=== PATIENT | female | born 1995 | race Two or more races ===

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

== ENCOUNTER 2017-04-08 13:26 | Emergency (ER) | payer MEDICAID ==
[2017-04-08] MEDS ORDERED: DIPHENHYDRAMINE HCL 25 MG CAPSULE PO ONE (14:21)
[2017-04-08] MEDS ORDERED: ACETAMINOPHEN 325 MG TABLET PO ONE (14:21)
[2017-04-08] MEDS ORDERED: ONDANSETRON 4 MG TAB.RAPDIS PO ONE (14:21)
--- NOTE | 2017-04-08 14:22 | ER Document Report ---
ED Head/Face/Scalp Injury - General Chief Complaint: Head Injury Stated Complaint: HEAD INJURY Time Seen by Provider: 04/08/17 14:05 Notes: Patient is a 21-year-old female presents emergency department complaining of headache, nausea and vomiting after head injury yesterday. Patient states that she was skateboarding when she fell and hit the back of her head. She denies any loss of consciousness. She admits to headache and nausea vomiting last evening. Admits to 2 episodes of emesis today. Otherwise she denies any changes in vision, confusion, altered mental status. TRAVEL OUTSIDE OF THE [place] IN LAST 30 DAYS: No - Related Data Allergies/Adverse Reactions: No Known Allergies Allergy (Verified 09/30/16 15:35) Past Medical History - Social History Smoking Status: Unknown if Ever Smoked Family History: Reviewed & Not Pertinent Patient has suicidal ideation: No Patient has homicidal ideation: No Pulmonary Medical History: Denies: Hx Asthma Renal/ Medical History: Denies: Hx Peritoneal Dialysis Psychiatric Medical History: Reports: Hx Anxiety, Hx Attention Deficit Hyperactivity Disorder, Hx Depression, Hx Post Traumatic Stress Disorder - Immunizations Immunizations up to date: Yes Hx Diphtheria, Pertussis, Tetanus Vaccination: Yes Review of Systems - Review of Systems Constitutional: No symptoms reported Musculoskeletal: See HPI Neurological/Psychological: See HPI -: Yes All other systems reviewed and negative Physical Exam - Vital signs Vitals: Temp Pulse Resp BP Pulse Ox 98.4 F 64 18 118/70 100 04/08/17 13:40 04/08/17 13:40 04/08/17 13:40 04/08/17 13:40 04/08/17 13:40 - Notes Notes: PHYSICAL EXAMINATION: GENERAL: Well-appearing, well-nourished and in no acute distress. GCS 15 HEAD: Atraumatic, normocephalic. EYES: Pupils equal round and reactive to light, extraocular movements intact, sclera anicteric, conjunctiva are normal. ENT: Nares patent, oropharynx clear without exudates. Moist mucous membranes. No hemanotympanum . No blood in nares. No dental fracture NECK: Normal range of motion, supple without lymphadenopathy. Trachea midline LUNGS: Breath sounds clear to auscultation bilaterally and equal. No wheezes rales or rhonchi. HEART: Regular rate and rhythm without murmurs. Pulses intact all throughout. ABDOMEN: Soft, nontender, nondistended abdomen. No guarding, no rebound. No masses appreciated. Musculoskeletal: Normal range of motion, no pitting or edema. No cyanosis. Hip non tender, stable. NEUROLOGICAL: Cranial nerves grossly intact. Normal speech, normal gait. Normal sensory, motor, and reflex exams. PSYCH: Normal mood, normal affect. SKIN: Warm, No active bleeding Course - Re-evaluation Re-evalutation: 04/08/17 20:43 Patient does not have any focal neurologic deficits, nuchal rigidity, vital signs are within normal limits no papilledema. Patient is otherwise no acute distress and hemodynamically stable. Low index for suspicion of acute subarachnoid hemorrhage, meningitis or mass. No evidence of hemorrhage, fracture noted on CT of the head. Low suspicion for acute life-threatening etiology with intact neuro exam therefore no additional imaging or laboratory testing is indicated. Will discharge patient home with strict follow-up with PCP within the next week. - Vital Signs Vital signs: Temp Pulse Resp BP Pulse Ox 97.7 F 68 18 102/68 100 04/08/17 15:50 04/08/17 15:50 04/08/17 13:40 04/08/17 15:50 04/08/17 15:50 - Diagnostic Test Radiology reviewed: Image reviewed, Reports reviewed Discharge - Discharge Clinical Impression: CHI (closed head injury) Qualifiers: Encounter type: initial encounter Qualified Code(s): S09.90XA - Unspecified injury of head, initial encounter Condition: Good Disposition: HOME, SELF-CARE Instructions: Head Injury Precautions ([facility]), Post-Concussion Syndrome ([facility]) Referrals: VERN PORTILLO MD [Primary Care Provider] - Follow up as needed
--- NOTE | 2017-04-08 15:09 | RADIOLOGY REPORT (SQ) ---
EXAM DESCRIPTION: CT HEAD WITHOUT COMPLETED DATE/TIME: 04/08/2017 2:35 pm REASON FOR STUDY: hit her head, N/V headache COMPARISON: None. TECHNIQUE: Axial images acquired through the brain without intravenous contrast. Images reviewed wi th bone, brain and subdural windows. Images stored on PACS. All CT scanners at this facility use dose modulation, iterative reconstruction, and/or weight based d osing when appropriate to reduce radiation dose to as low as reasonably achievable (ALARA). [facility]: Dose Right [facility]: CareDose [facility]: Dose Right [facility]: Teradose 4D [facility]: Incoming Media RADIATION DOSE: Up-to-date CT equipment and radiation dose reduction techniques were employed. CTDIv ol: 49.0 mGy. DLP: 881 mGy-cm. mGy. LIMITATIONS: None. FINDINGS: VENTRICLES: Normal size and contour. CEREBRUM: No masses. No hemorrhage. No midline shift. No evidence for acute infarction. Normal gra y/white matter differentiation. No areas of low density in the white matter. CEREBELLUM: No masses. No hemorrhage. No alteration of density. No evidence for acute infarction. EXTRAAXIAL SPACES: No fluid collections. No masses. ORBITS AND GLOBE: No intra- or extraconal masses. Normal contour of globe without masses. CALVARIUM: No fracture. PARANASAL SINUSES: No fluid or mucosal thickening. SOFT TISSUES: No mass or hematoma. OTHER: No other significant finding. IMPRESSION: NORMAL BRAIN CT WITHOUT CONTRAST. EVIDENCE OF ACUTE STROKE: NO. COMMENT: Quality ID # [id number]: Final reports with documentation of one or more dose reduction techniques (e.g., Automated exposure control, adjustment of the mA and/or kV according to patient size, use of iterative reconstruction technique) TECHNICAL DOCUMENTATION: JOB ID: [id number] [employer]- All Rights Reserved
[2017-04-08 15:54] VITALS: BP 102/68
== END 2017-04-08 15:54 | disposition home or self-care (01) ==
LOC: ER 13:26
DX: S09.90XA Unspecified injury of head, initial encounter (principal); R51 Headache; R11.2 Nausea with vomiting, unspecified; R41.82 Altered mental status, unspecified; X58.XXXA Exposure to other specified factors, initial encounter
CPT/HCPCS: 99283; 70450; J3490 ×2; S0119

== ENCOUNTER 2018-10-26 14:10 | Emergency (ER) | payer MEDICAID ==
--- NOTE | 2018-10-26 14:39 | ER Document Report ---
ED Medical Screen (RME) - General Chief Complaint: Abdominal Pain Stated Complaint: ABDOMINAL PAIN Time Seen by Provider: 10/26/18 14:27 Primary Care Provider: VERN PORTILLO MD [Primary Care Provider] - Follow up as needed Mode of Arrival: Ambulatory Information source: Patient Notes: Patient is a 23-year-old female who presents to the emergency department with sharp pain in her right lower quadrant that started yesterday. Patient reports associated nausea and weakness. Denies any vomiting. Reports a few episodes of diarrhea both yesterday and today. She reports that she took 1 of her friend's Percocets to help with the pain. Denies any dysuria or vaginal discharge. Patient reports pain is worse with movement. Exam: Patient alert, oriented, smiling and interactive, no acute distress noted. Mild tenderness to palpation to right lower quadrant without guarding or rebound tenderness. I have greeted and performed a rapid initial assessment of this patient. A comprehensive ED assessment and evaluation of the patient, analysis of test results and completion of the medical decision making process will be conducted by additional ED providers. Dictation of this chart was performed using voice recognition software; therefore, there may be some unintended grammatical errors. TRAVEL OUTSIDE OF THE [place] IN LAST 30 DAYS: No - Related Data Allergies/Adverse Reactions: methylphenidate [From Concerta] Allergy (Verified 10/26/18 14:12) Past Medical History - Social History Chew tobacco use (# tins/day): No Frequency of alcohol use: None Drug Abuse: None Pulmonary Medical History: Denies: Hx Asthma Renal/ Medical History: Denies: Hx Peritoneal Dialysis Psychiatric Medical History: Reports: Hx Anxiety, Hx Attention Deficit Hyperactivity Disorder, Hx Depression, Hx Post Traumatic Stress Disorder - Immunizations Immunizations up to date: Yes Hx Diphtheria, Pertussis, Tetanus Vaccination: Yes Physical Exam - Vital signs Vitals: Temp Pulse Resp BP Pulse Ox 98.2 F 71 18 114/63 99 10/26/18 14:16 10/26/18 14:16 10/26/18 14:16 10/26/18 14:16 10/26/18 14:16 Course - Vital Signs Vital signs: Temp Pulse Resp BP Pulse Ox 98.2 F 71 18 114/63 99 10/26/18 14:16 10/26/18 14:16 10/26/18 14:16 10/26/18 14:16 10/26/18 14:16 Doctor's Discharge - Discharge Referrals: VERN PORTILLO MD [Primary Care Provider] - Follow up as needed
[2018-10-26 15:33] LABS: ABSOLUTE BASOPHILS # (AUTO) 0.1 10^3/uL (0.0-0.2); ABSOLUTE EOSINOPHILS # (AUTO) 0.1 10^3/uL (0.0-0.6); ABSOLUTE LYMPHOCYTES (AUTO) 2.6 10^3/uL (0.5-4.7); ABSOLUTE MONOCYTES (AUTO) 0.5 10^3/uL (0.1-1.4); ABSOLUTE NEUT (AUTO) 3.6 10^3/uL (1.7-8.2); BASOPHILS % (AUTO) 1.2 % (0-2); EOSINOPHILS % (AUTO) 1.1 % (0-6); HEMATOCRIT 40.1 % (36.0-47.0); HEMOGLOBIN 13.9 g/dL (12.0-15.5); LYMPHOCYTES % (AUTO) 37.5 % (13-45); MEAN CORPUSCULAR HEMOGLOBIN 29.2 pg (27.0-33.4); MEAN CORPUSCULAR HGB CONC 34.8 g/dL (32.0-36.0); MEAN CORPUSCULAR VOLUME 84 fl (80-97); MONOCYTES % (AUTO) 7.1 % (3-13); PLATELET COUNT 204 10^3/uL (150-450); RED BLOOD COUNT 4.76 10^6/uL (3.72-5.28); RED CELL DISTRIBUTION WIDTH 12.8 % (11.5-14.0); SEGMENTED NEUTROPHILS % (AUTO) 53.1 % (42-78); TOTAL CELLS COUNTED % (AUTO) 100 %; WHITE BLOOD COUNT 6.8 10^3/uL (4.0-10.5)
[2018-10-26 15:37] LABS: AMORPHOUS SEDIMENT,URINE TRACE /HPF; APPEARANCE,URINE TURBID; BILIRUBIN,URINE NEGATIVE (NEGATIVE); COLOR,URINE YELLOW; GLUCOSE, URINE NEGATIVE (NEGATIVE); KETONES,URINE NEGATIVE (NEGATIVE); LEUKOCYTE ESTERASE,URINE TRACE (NEGATIVE); NITRITE,URINE NEGATIVE (NEGATIVE); PROTEIN,URINE NEGATIVE (NEGATIVE); URINE SPECIFIC GRAVITY 1.021; UROBILINOGEN,URINE NEGATIVE mg/dL (<2.0)
[2018-10-26 15:47] LABS: ALANINE AMINOTRANSFERASE 33 U/L (9-52); ALBUMIN 4.8 g/dL (3.5-5.0); ALKALINE PHOSPHATASE 52 U/L (38-126); ANION GAP 10 (5-19); ASPARTATE AMINO TRANSFERASE 28 U/L (14-36); BILIRUBIN,DIRECT 0.2 mg/dL (0.0-0.4); BILIRUBIN,TOTAL 0.5 mg/dL (0.2-1.3); BLOOD UREA NITROGEN 11 mg/dL (7-20); CALCIUM 10.1 mg/dL (8.4-10.2); CARBON DIOXIDE 29 mmol/L (22-30); CHLORIDE 103 mmol/L (98-107); GLUCOSE 79 mg/dL (75-110); LIPASE 49.3 U/L (23-300); POTASSIUM 3.8 mmol/L (3.6-5.0); SODIUM 142.3 mmol/L (137-145); TOTAL PROTEIN 7.9 g/dL (6.3-8.2)
--- NOTE | 2018-10-26 15:57 | ER Document Report ---
ED GI/ - General Chief Complaint: Abdominal Pain Stated Complaint: ABDOMINAL PAIN Time Seen by Provider: 10/26/18 14:27 Primary Care Provider: VERN PORTILLO MD [ACTIVE STAFF] - Follow up as needed Mode of Arrival: Ambulatory TRAVEL OUTSIDE OF THE [place] IN LAST 30 DAYS: No - HPI Patient complains to provider of: Abdominal pain Notes: 10/26/18 15:55 The patient is here with complaints of lower abdominal pain. States the pain started yesterday and was located in her right lower quadrant. The pain seems to be intermittent, pressure and sharp in nature. Nothing seems to make it better or worse. She states now the pain is going across her entire lower abdomen. She has had nausea, but denies any vomiting. She does complain of some mild diarrhea. No blood in her stool. She denies fever. She denies dysuria or hematuria. She denies vaginal bleeding or vaginal discharge. She states that she is sexually active but with females only. Last normal menstrual period was at the beginning of this month. No rash. No numbness, tingling, weakness. No other specific complaints at this time. - Related Data Allergies/Adverse Reactions: methylphenidate [From Concerta] Allergy (Verified 10/26/18 14:12) Past Medical History - General Information source: Patient - Social History Smoking Status: Current Every Day Smoker Chew tobacco use (# tins/day): No Frequency of alcohol use: None Drug Abuse: None Family History: Reviewed & Not Pertinent Patient has suicidal ideation: No Patient has homicidal ideation: No Pulmonary Medical History: Denies: Hx Asthma Renal/ Medical History: Denies: Hx Peritoneal Dialysis Psychiatric Medical History: Reports: Hx Anxiety, Hx Attention Deficit Hyperactivity Disorder, Hx Depression, Hx Post Traumatic Stress Disorder - Immunizations Immunizations up to date: Yes Hx Diphtheria, Pertussis, Tetanus Vaccination: Yes Review of Systems - Review of Systems -: Yes All other systems reviewed and negative Physical Exam - Vital signs Vitals: Temp Pulse Resp BP Pulse Ox 98.2 F 71 18 114/63 99 10/26/18 14:16 10/26/18 14:16 10/26/18 14:16 10/26/18 14:16 10/26/18 14:16 - Notes Notes: GENERAL: alert, cooperative, nontoxic, no distress. HEAD: normocephalic, atraumatic EYES: conjunctiva pink without discharge, no external redness or swelling. EARS: no external swelling, no external redness NOSE: atraumatic, no external swelling MOUTH/THROAT: mucous membranes moist and pink, posterior pharynx without erythema, swelling, exudate. No trismus or drooling. NECK: soft, supple, full range of motion, no meningismus. CHEST: no distress, lungs clear and equal throughout. No wheezing, rales, rhonchi. CARDIAC: regular rate and rhythm, no murmur, normal capillary refill, normal pulses. No peripheral edema noted. ABDOMEN: Soft, tenderness across the entire lower abdomen, right, mid, left. No rebound tenderness or guarding. No obvious mass. BACK: full range of motion, no CVA tenderness. EXTREMITIES: full range of motion of all extremities. No redness, no swelling. NEURO: alert and oriented x 3, no focal deficits, full range of motion of all extremities. PYSCH: appropriate mood, affect. Patient is cooperative. SKIN: pink, warm, dry, no rash. Course - Re-evaluation Re-evalutation: 10/26/18 16:32 Patient nontoxic-appearing with stable vitals. Patient is here with complaints of some lower abdominal pain. Started yesterday. This been intermittent, sharp, crampy in nature started on the right lower quadrant and is now across her whole entire lower abdomen. No vaginal symptoms. She has had nausea, but no vomiting. No fever. No prior abdominal surgeries. Abdominal exam shows some mild tenderness across the higher lower abdomen. No rebound tenderness or guarding. No mass. Urinalysis shows no signs of infection, urine is negative. Labs are normal with a normal white blood cell count. Ultrasound of the pelvis shows bilateral hemorrhagic cysts of the ovaries which would make sense with the patient's pain and tenderness. Have a very low suspicion for acute appendicitis with lack of fever, normal white count and the fact that she has pain across her entire lower abdomen. This point the patient will be discharged home with a prescription for Naprosyn. Referral to [facility]. Follow- up with OB at the next available appointment. Follow-up sooner or return the emergency department for worsening pain, fever, persistent vomiting, or for any further concerns. The patient's emergency department workup and current diagnosis were explained to the patient and or family. Follow-up instructions were provided. Medications if prescribed were discussed. Instructions for when to return to the emergency department including specific worrisome symptoms were discussed with the patient and/or family. - Vital Signs Vital signs: Temp Pulse Resp BP Pulse Ox 98.2 F 71 18 114/63 99 10/26/18 14:16 10/26/18 14:16 10/26/18 14:16 10/26/18 14:16 10/26/18 14:16 - Laboratory Result Diagrams: 10/26/18 15:17 10/26/18 15:17 Laboratory results interpreted by me: 10/26/18 15:17 Ur Leukocyte Esterase TRACE H - Diagnostic Test Radiology reviewed: Image reviewed, Reports reviewed - Ultrasound of the pelvis shows bilateral hemorrhagic cysts, no torsion. Discharge - Discharge Clinical Impression: Ovarian cyst Qualifiers: Laterality: bilateral Qualified Code(s): N83.201 - Unspecified ovarian cyst, right side; N83.202 - Unspecified ovarian cyst, left side Condition: Stable Disposition: HOME, SELF-CARE Instructions: Ovarian Cyst ([facility]) Additional Instructions: Take medication as prescribed. Drink plenty fluids. Follow-up with [facility] at the next available appointment. Follow-up sooner for worsening pain, fever, or for any further concerns. Prescriptions: Naproxen [Naprosyn] 500 mg PO BID #20 tablet Referrals: VERN PORTILLO MD [ACTIVE STAFF] - Follow up as needed
--- NOTE | 2018-10-26 15:58 | RADIOLOGY REPORT (SQ) ---
EXAM DESCRIPTION: U/S NON OB PEL TV W/DOPPLER COMPLETED DATE/TIME: 10/26/2018 3:45 pm REASON FOR STUDY: RLQ PAIN COMPARISON: None. TECHNIQUE: Dynamic and static grayscale images acquired of the pelvis via transvaginal approach and recorded on PACS. Additional selected color Doppler and spectral images recorded. LIMITATIONS: None. FINDINGS: UTERUS: Contour normal. No mass. ENDOMETRIAL STRIPE: No focal or generalized thickening. No masses. CERVIX: No nabothian cysts. RIGHT OVARY AND DOPPLER: Hypoechoic 1.8 cm probable complicated hemorrhagic cyst. Normal Doppler det ectable blood flow. LEFT OVARY AND DOPPLER: Hypoechoic probable complicated hemorrhagic cyst measuring 1.9 cm. Normal Do ppler detectable blood flow. FREE FLUID: None noted. OTHER: No other significant finding. MEASUREMENTS: UTERUS: 8.5 x 3.4 x 4.6 cm ENDOMETRIAL STRIPE: 7.3 mm RIGHT OVARY: 3.5 x 3.1 x 2.6 cm LEFT OVARY: 3.2 x 1.8 x 3.2 cm IMPRESSION: 1. Small bilateral complicated ovarian cysts, likely mildly hemorrhagic. Clinical followup advised. If the patient's symptoms do not resolve, repeat follow-up ultrasound surveillance imaging may be wa rranted. TECHNICAL DOCUMENTATION: JOB ID: [id number] [employer]- All Rights Reserved Rev-11/29 Reading location - IP/workstation name: [email or web address]
[2018-10-26 16:44] VITALS: BP 103/70
== END 2018-10-26 16:44 | disposition home or self-care (01) ==
LOC: ER 14:10
DX: N83.201 Unspecified ovarian cyst, right side (principal); N83.202 Unspecified ovarian cyst, left side; R11.0 Nausea; R19.7 Diarrhea, unspecified; F17.200 Nicotine dependence, unspecified, uncomplicated; Z88.8 Allergy status to other drugs, medicaments and biological substances
CPT/HCPCS: 36415; 76830; 80053; 81001; 83690; 84703; 85025; 93976; 99284

== ENCOUNTER 2018-12-25 23:01 | Emergency (ER) | payer MEDICAID ==
[2018-12-26 00:11] VITALS: BP 118/75
[2018-12-26] MEDS ORDERED: ONDANSETRON 4 MG TAB.RAPDIS PO ONE (00:58)
--- NOTE | 2018-12-26 00:59 | ER Document Report ---
ED Medical Screen (RME) - General Chief Complaint: Pelvic Problem Stated Complaint: ABDOMINAL PAIN Time Seen by Provider: 12/26/18 00:57 Mode of Arrival: Ambulatory Information source: Patient Notes: Patient presents complaining of lower pelvic pain that started yesterday. Patient states that she has had a fever as high as 101. Patient also complains of nausea vomiting and diarrhea. Patient is vomited twice and had diarrhea x3 episodes. Patient is concerned she may have an ovarian cyst. Patient also is on a control patch and smokes in her friend is concerned that she is having calf pain that could be due to a possible blood clot. Friend is also concerned about patient's chronic low back pain. I have greeted and performed a rapid initial assessment of this patient. A com prehensive ED assessment and evaluation of the patient, analysis of test results and completion of the medical decision making process will be conducted by additional ED providers. TRAVEL OUTSIDE OF THE [place] IN LAST 30 DAYS: No - Related Data Allergies/Adverse Reactions: methylphenidate [From Concerta] Allergy (Verified 10/26/18 14:12) Past Medical History Pulmonary Medical History: Denies: Hx Asthma Renal/ Medical History: Denies: Hx Peritoneal Dialysis Psychiatric Medical History: Reports: Hx Anxiety, Hx Attention Deficit Hyperactivity Disorder, Hx Depression, Hx Post Traumatic Stress Disorder - Immunizations Immunizations up to date: Yes Hx Diphtheria, Pertussis, Tetanus Vaccination: Yes Physical Exam - Vital signs Vitals: Temp Pulse Resp BP Pulse Ox 98.1 F 63 18 118/75 98 12/26/18 00:09 12/26/18 00:09 12/26/18 00:09 12/26/18 00:09 12/26/18 00:09 - Abdominal Tenderness: Tender - Lower pelvic Course - Vital Signs Vital signs: Temp Pulse Resp BP Pulse Ox 98.1 F 63 18 118/75 98 12/26/18 00:09 12/26/18 00:09 12/26/18 00:09 12/26/18 00:09 12/26/18 00:09
[2018-12-26 01:37] LABS: ABSOLUTE BASOPHILS # (AUTO) 0.1 10^3/uL (0.0-0.2); ABSOLUTE EOSINOPHILS # (AUTO) 0.1 10^3/uL (0.0-0.6); ABSOLUTE LYMPHOCYTES (AUTO) 3.6 10^3/uL (0.5-4.7); ABSOLUTE MONOCYTES (AUTO) 0.5 10^3/uL (0.1-1.4); ABSOLUTE NEUT (AUTO) 5.1 10^3/uL (1.7-8.2); BASOPHILS % (AUTO) 0.8 % (0-2); HEMATOCRIT 43.1 % (36.0-47.0); MEAN CORPUSCULAR HEMOGLOBIN 29.2 pg (27.0-33.4); MEAN CORPUSCULAR HGB CONC 34.8 g/dL (32.0-36.0); MEAN CORPUSCULAR VOLUME 84 fl (80-97); MONOCYTES % (AUTO) 5.1 % (3-13); PLATELET COUNT 186 10^3/uL (150-450); RED BLOOD COUNT 5.12 10^6/uL (3.72-5.28); RED CELL DISTRIBUTION WIDTH 12.8 % (11.5-14.0); SEGMENTED NEUTROPHILS % (AUTO) 55.1 % (42-78); TOTAL CELLS COUNTED % (AUTO) 100 %; WHITE BLOOD COUNT 9.4 10^3/uL (4.0-10.5)
[2018-12-26 01:56] LABS: AMORPHOUS SEDIMENT,URINE TRACE /HPF; APPEARANCE,URINE TURBID; BILIRUBIN,URINE NEGATIVE (NEGATIVE); COLOR,URINE YELLOW; GLUCOSE, URINE NEGATIVE (NEGATIVE); KETONES,URINE NEGATIVE (NEGATIVE); LEUKOCYTE ESTERASE,URINE NEGATIVE (NEGATIVE); NITRITE,URINE NEGATIVE (NEGATIVE); PROTEIN,URINE NEGATIVE (NEGATIVE); URINE SPECIFIC GRAVITY 1.025
[2018-12-26 01:58] LABS: ALANINE AMINOTRANSFERASE 18 U/L (9-52); ALBUMIN 4.7 g/dL (3.5-5.0); ALKALINE PHOSPHATASE 57 U/L (38-126); ANION GAP 9 (5-19); ASPARTATE AMINO TRANSFERASE 22 U/L (14-36); BILIRUBIN,DIRECT 0.3 mg/dL (0.0-0.4); BILIRUBIN,TOTAL 0.7 mg/dL (0.2-1.3); BLOOD UREA NITROGEN 15 mg/dL (7-20); CALCIUM 10.4 mg/dL (8.4-10.2); CARBON DIOXIDE 28 mmol/L (22-30); CHLORIDE 101 mmol/L (98-107); GLUCOSE 100 mg/dL (75-110); LIPASE 83.2 U/L (23-300); POTASSIUM 3.9 mmol/L (3.6-5.0); SODIUM 137.9 mmol/L (137-145); TOTAL PROTEIN 7.8 g/dL (6.3-8.2)
--- NOTE | 2018-12-26 02:10 | RADIOLOGY REPORT (SQ) ---
EXAM DESCRIPTION: US PELVIS TRANSVAGINAL COMPLETED DATE/TME: 12/26/2018 00:58 CLINICAL HISTORY: 23 years Female, pelvic pain. LMP. 12/13/2018. COMPARISON: 10/26/2018 TECHNIQUE: Complete pelvic ultrasound obtained with transvaginal imaging. FINDINGS: Uterus: The uterus measures 8.1 x 4.3 x 3.2 cm. No myometrial abnormalities. Endometrium: Endometrial thickness of 6 mm. Right ovary: The right ovary measures 2.1 x 1.3 x 1.1 cm. Left ovary: Left ovary measures 3.1 x 2.0 x 2.4 cm. There is a 2.2 x 1.8 x 1.7 cm dominant follicle in the left ovary. No follow-up imaging recommended. Adnexa: No large adnexal masses. Free fluid: No free pelvic fluid. Duplex imaging: Color and spectral Doppler imaging demonstrates blood flow within the ovaries bilaterally. IMPRESSION: 1. No sonographic abnormality identified.
[2018-12-26] MEDS ORDERED: KETOROLAC TROMETHAMINE INJ/PF 30 MG/1 ML SDV IV ONE (03:42)
[2018-12-26] MEDS ORDERED: ONDANSETRON ODT 4 MG TAB (6 TAB/ER DISP) PO PRN (03:44)
--- NOTE | 2018-12-26 03:46 | ER Document Report ---
ED General - General Chief Complaint: Pelvic Problem Stated Complaint: ABDOMINAL PAIN Time Seen by Provider: 12/26/18 00:57 Primary Care Provider: YESI COURTNEY MD [ACTIVE STAFF] - Follow up in 3-5 days Mode of Arrival: Ambulatory Information source: Patient Notes: 23-year-old female with a history of ovarian cysts presents with complaint of lower abdominal pain that started 4 days prior to arrival. Patient describes the pain as sharp, constant and associated with nausea. Patient states that she is on a control patch for her ovarian cyst. She denies any dysuria, hematuria, vaginal discharge, concern for STD. Patient is sexually active with women. Patient reports associated nausea and vomiting secondary to pain. Patient did receive Zofran prior to my exam reports resolution of her nausea. TRAVEL OUTSIDE OF THE [place] IN LAST 30 DAYS: No - HPI Onset: Other Onset/Duration: Gradual, Persistent Quality of pain: Cramping, Sharp Severity: Moderate Pain Level: 2 Associated symptoms: Nausea, Vomiting. denies: Body/muscle aches, Chest pain, Diarrhea, Earache, Fever, Shortness of breath Exacerbated by: Denies Relieved by: Denies Similar symptoms previously: Yes Recently seen / treated by doctor: Yes - Related Data Allergies/Adverse Reactions: methylphenidate [From Concerta] Allergy (Verified 10/26/18 14:12) Past Medical History - General Information source: Patient - Social History Smoking Status: Current Every Day Smoker Cigarette use (# per day): Yes - 10 Smoking Education Provided: Yes - Smoking cessation counseling was provided for 4 minutes at the bedside Frequency of alcohol use: Occasional Drug Abuse: None Lives with: Family Family History: Reviewed & Not Pertinent Patient has suicidal ideation: No Patient has homicidal ideation: No Pulmonary Medical History: Denies: Hx Asthma Renal/ Medical History: Denies: Hx Peritoneal Dialysis Psychiatric Medical History: Reports: Hx Anxiety, Hx Attention Deficit Hy peractivity Disorder, Hx Depression, Hx Post Traumatic Stress Disorder - Immunizations Immunizations up to date: Yes Hx Diphtheria, Pertussis, Tetanus Vaccination: Yes Review of Systems - Review of Systems Notes: REVIEW OF SYSTEMS: CONSTITUTIONAL : Denies fever, chills, or sweats. Denies recent illness. Denies weight loss, recent hospitalizations. EENT: Denies visual changes, eye pain. Denies sore throat, oral lesions, difficulty swallowing. CARDIOVASCULAR: Denies chest pain. Denies palpitations. Denies lower extremity edema. RESPIRATORY: Denies cough. Denies shortness of breath, wheezing. GASTROINTESTINAL: Denies abdominal distention. Denies diarrhea. Denies blood in vomitus, stools, or per rectum. Denies black, tarry stools. Denies constipation. GENITOURINARY: Denies difficulty urinating, painful urination, frequency, blood in urine, or vaginal discharge. MUSCULOSKELETAL: Denies back or neck pain or stiffness. Denies joint pain or swelling. SKIN: Denies rash, lesions or sores. HEMATOLOGIC : Denies easy bruising or bleeding. LYMPHATIC: Denies swollen glands. NEUROLOGICAL: Denies confusion or altered mental status. Denies loss of consciousness. Denies dizziness or lightheadedness. Denies headache. Denies weakness or paralysis. Denies problems difficulty with ambulation, slurred speech. Denies sensory loss, numbness, or tingling. Denies seizures. PSYCHIATRIC: Denies anxiety or stress. Denies depression, suicidal ideation, or homicidal ideation. Denies visual or auditory hallucinations. Physical Exam - Vital signs Vitals: Temp Pulse Resp BP Pulse Ox 98.1 F 63 18 118/75 98 12/26/18 00:09 12/26/18 00:12/26/18 00:12/26/18 00:12/26/18 00:09 - Notes Notes: PHYSICAL EXAMINATION: GENERAL: Well-appearing, well-nourished and in no acute distress. HEAD: Atraumatic, normocephalic. EYES: Pupils equal round and reactive to light, extraocular movements intact, conjunctiva are normal. ENT: Nares patent, oropharynx clear without exudates. Moist mucous membranes. NECK: Normal range of motion, supple without lymphadenopathy LUNGS: Breath sounds clear to auscultation bilaterally and equal. No wheezes rales or rhonchi. HEART: Regular rate and rhythm without murmurs ABDOMEN: Tenderness with palpation to the right and left lower quadrant. No guarding, no rebound. No masses appreciated. Female : deferred Musculoskeletal: Normal range of motion, no pitting or edema. No cyanosis. NEUROLOGICAL: Cranial nerves grossly intact. Normal speech, normal gait. Normal sensory, motor exams PSYCH: Normal mood, normal affect. SKIN: Warm, Dry, normal turgor, no rashes or lesions noted. Course - Re-evaluation Re-evalutation: 12/26/18 03:43 Laboratory 12/26/18 12/26/18 12/26/18 01:20 01:20 01:20 WBC 9.4 RBC 5.12 Hgb 15.0 Hct 43.1 MCV 84 MCH 29.2 MCHC 34.8 RDW 12.8 Plt Count 186 Seg Neutrophils % 55.1 Lymphocytes % 38.0 Monocytes % 5.1 Eosinophils % 1.0 Basophils % 0.8 Absolute Neutrophils 5.1 Absolute Lymphocytes 3.6 Absolute Monocytes 0.5 Absolute Eosinophils 0.1 Absolute Basophils 0.1 Sodium 137.9 Potassium 3.9 Chloride 101 Carbon Dioxide 28 Anion Gap 9 BUN 15 Creatinine 0.62 Est GFR ( Amer) > 60 Est GFR (Non-Af Amer) > 60 Glucose 100 Calcium 10.4 H Total Bilirubin 0.7 Direct Bilirubin 0.3 Neonat Total Bilirubin Not Reportable Neonat Direct Bilirubin Not Reportable Neonat Indirect Bili Not Reportable AST 22 ALT 18 Alkaline Phosphatase 57 Total Protein 7.8 Albumin 4.7 Lipase 83.2 Urine Color YELLOW Urine Appearance TURBID Urine pH 7.0 Ur Specific Sherman 1.025 Urine Protein NEGATIVE Urine Glucose (UA) NEGATIVE Urine Ketones NEGATIVE Urine Blood NEGATIVE Urine Nitrite NEGATIVE Urine Bilirubin NEGATIVE Urine Urobilinogen 4.0 H Ur Leukocyte Esterase NEGATIVE Urine RBC (Auto) 3 Urine Bacteria (Auto) TRACE Squamous Epi Cells Auto 2 Amorphous Sediment Auto TRACE Urine Mucus (Auto) RARE Urine Ascorbic Acid 40 H Urine HCG, Qual NEGATIVE Transvaginal US 12/26/18 00:58 IMPRESSION: 1. No sonographic abnormality identified. Temp Pulse Resp BP Pulse Ox 98.1 F 63 18 118/75 98 12/26/18 00:09 12/26/18 00:09 12/26/18 00:09 12/26/18 00:09 12/26/18 00:09 23-year-old female with a history of ovarian cyst presents with lower abdominal pain that started 3 days prior to arrival. Patient describes the pain as sharp, intermittent. Denies any associated dysuria, hematuria or vaginal discharge. CBC, CMP, urinalysis are unremarkable. Trans-vaginal ultrasound also unremar kable. Patient declining pelvic exam and requesting discharge home. Patient did receive Toradol and Zofran during her ED course. Home-going Zofran provided. 12/26/18 04:27 Patient was evaluated and treated as appropriate for the patient's presenting symptoms and complaint, with consideration of any critical or life threatening conditions that may be associated with their obtained history and exam as noted above. All results were discussed with patient and friend who is at the bedside. Patient provided the opportunity to ask questions, and express concerns. Patient was educated on treatments based on their presumed diagnosis as noted above. At this time we will discharge the patient with return precautions and follow-up recommendations. Verbal discharge instructions given a the bedside. Medication warnings reviewed. Patient is in agreement with this plan and has verbalized understanding of return precautions. After careful consideration I feel that that patient can be safely discharged from the emergency department, they were advised to followup with a primary care physician in 2-3 days. Dictation on this chart was performed using voice recognition software and may result in unintended grammatical, spelling, syntax or errors. - Vital Signs Vital signs: Temp Pulse Resp BP Pulse Ox 98.1 F 63 18 118/75 98 12/26/18 00:09 12/26/18 00:09 12/26/18 00:09 12/26/18 00:09 12/26/18 00:09 - Laboratory Result Diagrams: 12/26/18 01:20 12/26/18 01:20 Laboratory results interpreted by me: 12/26/18 12/26/18 01:20 01:20 Calcium 10.4 H Urine Urobilinogen 4.0 H Urine Ascorbic Acid 40 H - Diagnostic Test Radiology reviewed: Image reviewed, Reports reviewed Discharge - Discharge Clinical Impression: Pelvic pain, History of ovarian cyst Condition: Good Disposition: HOME, SELF-CARE Instructions: Nausea or Vomiting, Nonspecific ([facility]), Ovarian Cyst ([facility]), Pelvic Pain ([facility]) Referrals: YESI COURTNEY MD [ACTIVE STAFF] - Follow up in 3-5 days
== END 2018-12-26 04:04 | disposition home or self-care (01) ==
LOC: ER 23:01
DX: R10.2 Pelvic and perineal pain (principal); R10.30 Lower abdominal pain, unspecified; R11.2 Nausea with vomiting, unspecified; F17.210 Nicotine dependence, cigarettes, uncomplicated
CPT/HCPCS: 99284; 96374; 36415; 83690; 85025; 81025; 80053; 81001; 76830; 93976; S0119; J1885

== ENCOUNTER 2019-02-27 06:21 | Emergency (ER) | payer MEDICAID ==
[2019-02-27 06:27] VITALS: BP 124/75
[2019-02-27] MEDS ORDERED: ACETAMINOPHEN 325 MG TABLET PO ONE (06:46)
[2019-02-27] MEDS ORDERED: IBUPROFEN 600 MG TABLET PO ONE (06:46)
--- NOTE | 2019-02-27 06:50 | ER Document Report ---
ED Extremity Problem, Upper - General Chief Complaint: Shoulder Injury Stated Complaint: SHOULDER INJURY Time Seen by Provider: 02/27/19 06:37 Notes: Healthy 23-year-old female presents the emergency department for chief complaint of right shoulder pain after falling off her skateboard yesterday about 4 PM. Patient states that she did not strike her head or lose consciousness. Patient said that impact caused her arm to go numb and she is slowly regained sensation but there is still some sensory deficit. Patient has been favoring it and is unable to really move it. Patient cannot flex or abduct her shoulder. Patient is able to move her fingers and flex and extend her wrist. Patient can make a fist. No other complaints TRAVEL OUTSIDE OF THE [place] IN LAST 30 DAYS: No - Related Data Allergies/Adverse Reactions: methylphenidate [From Concerta] Allergy (Verified 10/26/18 14:12) Past Medical History - Social History Smoking Status: Unknown if Ever Smoked Family History: Reviewed & Not Pertinent Patient has suicidal ideation: No Patient has homicidal ideation: No Pulmonary Medical History: Denies: Hx Asthma Renal/ Medical History: Denies: Hx Peritoneal Dialysis Psychiatric Medical History: Reports: Hx Anxiety, Hx Attention Deficit Hyperactivity Disorder, Hx Depression, Hx Post Traumatic Stress Disorder - Immunizations Immunizations up to date: Yes Hx Diphtheria, Pertussis, Tetanus Vaccination: Yes Review of Systems - Review of Systems Constitutional: No symptoms reported EENT: No symptoms reported Cardiovascular: No symptoms reported Respiratory: No symptoms reported Gastrointestinal: No symptoms reported Genitourinary: No symptoms reported Female Genitourinary: No symptoms reported Musculoskeletal: See HPI Skin: No symptoms reported Hematologic/Lymphatic: No symptoms reported Neurological/Psychological: See HPI Physical Exam - Vital signs Vitals: Temp Pulse Resp BP Pulse Ox 98.2 F 62 20 124/75 99 02/27/19 06:25 02/27/19 06:25 02/27/19 06:25 02/27/19 06:25 02/27/19 06:25 - Notes Notes: PHYSICAL EXAMINATION: Reviewed vital signs and charting by RN GENERAL: Alert, interacts well. No acute distress. HEAD: Normocephalic, atraumatic. EYES: Pupils equal and round. Extraocular movements intact. NECK: Full range of motion. Trachea midline. EXTREMITIES: Patient is favoring her right shoulder is unable to flex or abduct the deltoid, sensation is intact to light touch, patient with 5/5 lottery manager strength but it causes pain in tingling in her arm, brisk cap refill, 2+ radial pulse. PSYCH: Normal affect, normal mood. SKIN: Warm, dry, normal turgor. No rashes or lesions noted. Course - Re-evaluation Re-evalutation: 02/27/19 06:49 Overall well-appearing plan is to get a right shoulder series and place her in a sling. She has been given Motrin and Tylenol for pain. 02/27/19 07:37 X-ray was negative for any fracture or dislocation. Plan is for patient to follow-up with her primary doctor and get follow on referral if necessary. She is stable for discharge. - Vital Signs Vital signs: Temp Pulse Resp BP Pulse Ox 98.2 F 62 20 124/75 99 02/27/19 06:25 02/27/19 06:25 02/27/19 06:25 02/27/19 06:25 02/27/19 06:25 Discharge - Discharge Clinical Impression: Right shoulder injury Qualifiers: Encounter type: initial encounter Qualified Code(s): S49.91XA - Unspecified injury of right shoulder and upper arm, initial encounter Condition: Good Disposition: HOME, SELF-CARE Additional Instructions: You were seen in the emergency department this morning for a right shoulder inju ry. X-ray was reassuring did not show any fracture or dislocation. You most likely sustained either ligamentous injury or muscle strain. We have placed you in a sling and you can take Tylenol 1000 mg every 6 hours and/or ibuprofen 600 mg every 6 hours with food or milk. Please follow-up with your primary doctor to assess the need for possible orthopedic follow-up if your injury does not improve over the next several days. If you do completely loose strength in your arm, you have complete numbness of your arm, you lose circulation and it i.e. your fingertips or hand starts to turn purple or blue, or you have any other concerning symptoms please return to the emergency department for reevaluation.
--- NOTE | 2019-02-27 07:35 | RADIOLOGY REPORT (SQ) ---
EXAM DESCRIPTION: XR SHOULDER 2 OR MORE VIEWS COMPLETED DATE/TME: 02/27/2019 06:38 CLINICAL HISTORY: 23 years Female, fall COMPARISON: None. Findings: Bones, joints, and soft tissues of the RIGHT XR SHOULDER 3 VIEWS appear intact. IMPRESSION: No acute findings.
== END 2019-02-27 07:40 | disposition home or self-care (01) ==
LOC: ER 06:21
DX: S49.91XA Unspecified injury of right shoulder and upper arm, initial encounter (principal); V00.131A Fall from skateboard, initial encounter; Y93.51 Activity, roller skating (inline) and skateboarding
CPT/HCPCS: 99283; 73030; J3490 ×2

== ENCOUNTER 2019-02-27 20:02 | Emergency (ER) | payer MEDICAID ==
[2019-02-27] MEDS ORDERED: DIPH/PERTUSS(ACELL)/TETANUS VAC/PF 0.5 ML SYR (>=10YO) IM ONE (23:41)
--- NOTE | 2019-02-27 23:50 | ER Document Report ---
HPI - HPI Patient complains to provider of: right shoulder pain Time Seen by Provider: 02/27/19 23:30 Onset: Yesterday Onset/Duration: Sudden, Persistent Quality of pain: Achy, Sharp Severity: Moderate Pain Level: 4 Context: 23-year-old female with the listed pmh, presents the emergency department for chief complaint of right shoulder pain after falling off her skateboard yesterday about 4 PM. denies hitting her head, no loc. no vomiting. no neck pain. no pain anywhere else. able to ambulate. she was seen and evaluated here about 18 hours ago for the same and had a neg right shoulder xr and diagnosed with what sounds like a possible ligamentous injury of the shoulder or possible internal derangement of the shoulder and sent home in a sling and told to use tylenol and motrin. she states she has been using tylenol and motrin however it isn't controlling her pain so she came in for pain control. no new injury or trauma. no pain anywhere else. no preceding fall sx. she hasn't had a chance to make a f/u apt with pcp/ortho since leaving here earlier today. she states she is still having the continued numbness intermittently in her hand which is unchanged. no hx of this before. no weakness. no other changes in neurologic. she was in her usual state of health without these issues prior to falling off the skateboard and landing directly on that shoulder. she also requests a work note. she has been wearing the sling and has it on with her in the room. she is right handed. denies . denies blood thinners. no surgeries on her neck or arm. no intoxication or blood thinners. No other complaints at this time. Exacerbated by: Movement Relieved by: Remaining still Similar symptoms previously: No Recently seen / treated by doctor: Yes - ROS Systems Reviewed and Negative: Yes All other systems reviewed and negative - to include 10 systems, unless mentioned in the hpi - REPRODUCTIVE LMP: 03/14/19 Reproductive: DENIES: : Past Medical History - General Information source: Patient - Social History Smoking Status: Unknown if Ever Smoked Frequency of alcohol use: None Drug Abuse: None Lives with: Spouse/Significant other Family History: Reviewed & Not Pertinent Patient has suicidal ideation: No Patient has homicidal ideation: No Pulmonary Medical History: Reports: None Denies: Hx Asthma Endocrine Medical History: Reports: None Renal/ Medical History: Denies: Hx Peritoneal Dialysis Psychiatric Medical History: Reports: Hx Anxiety, Hx Attention Deficit Hyperactivity Disorder, Hx Depression, Hx Post Traumatic Stress Disorder - Immunizations Immunizations up to date: Yes Hx Diphtheria, Pertussis, Tetanus Vaccination: Yes Vertical Provider Document - CONSTITUTIONAL Notes: GENERAL_APPEARANCE: well_nourished, alert, cooperative, mild obvious discomfort. Pleasant, young thin black female, smiling, speaking in full sentences, in no sign of pain or resp distress, easily sitting up. significant female other at bedside VITALS: reviewed, see vital signs table. HEAD: normocephalic and atraumatic, no raccoon eyes, no brooks signs. no swelling or ttp. EARS: canals_clear_bilat, TMs_clear, no_discharge_from_ears. no hemotympanum EYES: EOMI without pain, conjunctiva_clear. PERRL, eyelids wnl. no drainage. no ttp or crepitation of the orbits. no sign of orbital/periorbital cellulitis. no hyphema. MOUTH: no_lacerations inside_mouth. no broken teeth. no tmj clicking or ttp. pharynx wnl. tongue protrudes midline. no drooling, tripoding, voice change, or stridor, no thrush or oral lesions. no tongue or lip swelling. NOSE: no drainage or epistaxis NECK: no_swelling\tenderness on the neck other than over right trapezius where there is a spasm noted. palpation here reproduces pts pain some. no midline bony tenderness. no step offs or deformities. full rom. full strength. no meningeal signs. no sign of central cord syndrome. HEART: normal_rate, normal_rhythm, LUNGS: ctab. no chest wall ttp. no overlying skin changes. no flail chest or crepitation. ABDOMEN: normal_BS, soft, no_abd_tenderness, no rebound, guarding, distension, or peritoneal signs. no cva ttp. no overlying skin changes. BACK: no midline bony tenderness. no step offs or deformities RECTAL: deferred, however, no sign of loss of bowel or bladder or soiling of clothing. EXTREMITIES: strength 5/5 in all_extremities unless otherwise noted, good pulses all_extremities, no_abrasions\lacerations in the extremities other than a small abrasion on her right elbow and even smaller one on her right shoulder. they do not require suture repair. No drainage, streaking, bleeding, induration, or fluctuation. No grossly visible foreign body. No crepitation., no_swelling\tenderness in the extremities other than over proximal shoulder diffusely, worse anteriorly. no ac jt ttp. no bicipital groove ttp. full rom other some decreased range of motion right shoulder secondary only to pain. normal gait. slight decreased right hand opal miner secondary only to pain. no thenar or hypothenar atrophy. neg speed. neg yergason. not able to asses for drop can due to pain. no shortening or rotation of the limbs. no obvious deformities. neg snuff box ttp. neg tinel, phalen, finklestein SKIN: warm, dry, good_color. no rash NEURO: cranial nerves 2 - 12 intact, motor_intact, sensory_intact. cerebellar function intact, symmetric smile and faces. not able to assess right arm reflexes secondary to moving the arm into position for them causes her pain. GLASCOW_COMA_SCORE: (adult) - eyes_open_spontaneously_4, verbal_converses_and_oriented_5, motor_obeys_commands_6, glasgow_coma_total_15, MENTAL_STATUS: speech_clear, oriented_X_3, responds_appropriately to questions. - INFECTION CONTROL TRAVEL OUTSIDE OF THE [place] IN LAST 30 DAYS: No Course - Re-evaluation Re-evalutation: 02/27/19 23:45 Pt here for continued right shoulder pain after an accidental mechanical fall yesterday. denies hitting her head, no loc, no vomiting, no incontinence, saddle anestheisa, numbness, gonzalez, or rash; however, she does have some abrasions to her right shoulder and right elbow. they are mild areas cleansed and dressed via nursing. advised wound care. her last tdap was >5yrs ago so this was updated also here today. already had a neg right shoulder xr earlier today so this wasn't repeated as pt denies any new trauma or injury. still having some numbness in her right hand since the injury but this is unchanged. no other changes in neurologic. no sign of cauda equina, spinal cord involvement, or central cord syndrome. she states she is here because her pain isn't controlled with tylenol and motrin. she denies hx of seizures. will dc with a few ultram and robaxin. gave medication precautions. ice/heat to the area. advised sx care. she can cont to wear the sling she was given earlier today for comfort for the next few days removing her arm several times a day to do gentle stretches to prevent frozen shoulder. advised to f/u with pcp/ortho in 1-2 days. return for any worsening symptoms. vss. well appearing. satting well on ra. neurononfocal. pt understands and agrees to plan. On reexam, pt improved with tx listed. remained stable. nontoxic. well appearing. pain controlled. tolerating po. requesting to go home. Documentation achieved through voice recording which my lead to some occasional accidental typographical errors. Extensive efforts have been made to proof read documentation to make sure these are the least as possible. According to the [place] drug database, she has not received any narcotics in the last 2 years. Category Date Time Status Wound care [Dressing/Wound Care (ED)] NOW Care 02/27/19 23:41 Active Diph,Pertuss(Acell),Tet Vac/Pf [Boostrix Vaccine 0.5 ml Med 02/27/19 23:41 Discontinued Syringe] 0.5 ml IM NOW ONE Tramadol HCl [Ultram 50 mg Tablet] Med 02/27/19 23:59 Discontinued 50 mg PO NOW ONE 03/02/19 17:41 - Vital Signs Vital signs: Temp Pulse Resp BP Pulse Ox 97.9 F 88 20 124/80 100 02/27/19 20:17 02/27/19 20:17 02/27/19 20:17 02/27/19 20:17 02/27/19 20:17 Discharge - Discharge Clinical Impression: Sprain of right shoulder Qualifiers: Encounter type: subsequent encounter Shoulder sprain type: unspecified sprain Qualified Code(s): S43.401D - Unspecified sprain of right shoulder joint, subsequent encounter Fall Qualifiers: Encounter type: subsequent encounter Qualified Code(s): W19.XXXD - Unspecified fall, subsequent encounter Right shoulder injury Qualifiers: Encounter type: subsequent encounter Qualified Code(s): S49.91XD - Unspecified injury of right shoulder and upper arm, subsequent encounter Condition: Good Disposition: HOME, SELF-CARE Instructions: Exercise Program for the Shoulder ([facility]), Shoulder Injury ([facility]) Additional Instructions: Follow-up with PCP/ortho in 1 to 2 days. Return for any worsening symptoms. ice/heat to the area. continue to wear the sling for the next few days or until cleared by pcp/ortho, removing your arms several times a day to do gentle stretches to prevent frozen shoulder. do not work, drive, or operate machinery while taking the pain meds or muscle relaxers. Prescriptions: Methocarbamol [Robaxin 500 mg Tablet] 500 mg PO QID PRN #20 tablet PRN Reason: For Pain Tramadol HCl [Ultram 50 mg Tablet] 50 mg PO QID PRN #12 tab PRN Reason: For Pain Forms: Return to Work Referrals: NAVYA SMITH MD [ACTIVE STAFF] - Follow up in 3-5 days
[2019-02-27 23:52] VITALS: BP 131/78
[2019-02-27] MEDS ORDERED: TRAMADOL HCL 50 MG TABLET PO ONE (23:59)
== END 2019-02-28 00:07 | disposition home or self-care (01) ==
LOC: ER 20:02
DX: S43.401A Unspecified sprain of right shoulder joint, initial encounter (principal); V00.131A Fall from skateboard, initial encounter; Y93.51 Activity, roller skating (inline) and skateboarding; Z23 Encounter for immunization
CPT/HCPCS: 90471; 90715; 99283

== ENCOUNTER 2020-03-21 17:12 | Emergency (ER) | payer MEDICAID ==
[2020-03-21 17:18] VITALS: BP 113/92
[2020-03-21] MEDS ORDERED: IBUPROFEN 600 MG TABLET PO ONE (17:32)
--- NOTE | 2020-03-21 17:36 | ER Document Report ---
ED Extremity Problem, Lower - General Chief Complaint: Ankle Injury Stated Complaint: RIGHT ANKLE PAIN, SWELLING Time Seen by Provider: 03/21/20 17:23 Primary Care Provider: [facility] [Provider Group] - Follow up tomorrow GERALDINE DEVINE DO [NO LOCAL MD] - Follow up tomorrow Mode of Arrival: Ambulatory Information source: Patient Notes: 24-year-old female presented to ED for pain to the right ankle and foot about 30 minutes. She states she had played basketball and a while and she decided today to play basketball she went up for a jump shot and came down landed wrong on her foot twisted and heard pops and crackles now has extreme pain to her right ankle and foot. Patient still has her shoe on at this moment. I told her I would further examine the shoe after she went to x-ray and they removed shoe and x- rayed the foot and ankle. Patient is alert oriented respirations regular nonlabored speaking in full sentences. At first she stated she did not want any pain medication at all but then she states that her pain was pretty bad so I did ask her did she sure she did not want some ibuprofen and then she agreed to take some. REVIEW OF SYSTEMS: CONSTITUTIONAL : Denies fever, chills, or sweats. Denies recent illness. EENT: Denies eye, ear, throat, or mouth pain or symptoms. Denies nasal or sinus congestion. CARDIOVASCULAR: Denies chest pain. MUSCULOSKELETAL: Pain swelling to the right foot and ankle SKIN: Mild ecchymosis to the right foot and ankle HEMATOLOGIC : Denies easy bruising or bleeding. LYMPHATIC: Denies swollen, enlarged glands. NEUROLOGICAL: Denies altered mental status or loss of consciousness. Denies headache. Denies weakness or paralysis or loss of use of either side. Denies problems with speech. Denies sensory loss. Unable to walk on right foot at this time. PSYCHIATRIC: Denies anxiety or stress or depression. ALL OTHER SYSTEMS REVIEWED AND NEGATIVE. PHYSICAL EXAMINATION: GENERAL: Well-appearing, well-nourished and in no acute distress. HEAD: Atraumatic, normocephalic. EYES: Pupils equal round extraocular movements intact, conjunctiva are normal. ENT: Nares patent NECK: Normal range of motion LUNGS: No respiratory distress Musculoskeletal: Tenderness and swelling to the right ankle and foot. Patient does have pulses present to the dorsalis pedis NEUROLOGICAL: Normal speech, did not walk due to pain to the right foot and ankle PSYCH: Normal mood, normal affect. SKIN: Warm, Dry, normal turgor, no rashes or lesions noted. TRAVEL OUTSIDE OF THE [place] IN LAST 30 DAYS: No - HPI Patient complains to provider of: Injury, Pain, Swelling Location: Ankle, Foot Occurred: Just prior to arrival Where: Outdoors, Public place Onset/Duration: Gradual Quality of pain: Sharp, Throbbing Severity: Moderate Pain Level: 4 Context: Twisted Associated symptoms: Unable to bear weight Exacerbated by: Hanging down, Movement Relieved by: Elevation, Ice, Rest - Related Data Allergies/Adverse Reactions: methylphenidate [From Concerta] Allergy (Verified 02/27/19 20:03) lavendar Allergy (Uncoded 02/27/19 20:03) Past Medical History - General Information source: Patient - Social History Smoking Status: Former Smoker - States she now uses vapor cigarettes Frequency of alcohol use: None Drug Abuse: None Lives with: Family Family History: Reviewed & Not Pertinent Patient has suicidal ideation: No Patient has homicidal ideation: No - Past Medical History Cardiac Medical History: Reports: None Pulmonary Medical History: Reports: None EENT Medical History: Reports: None Neurological Medical History: Reports: None Endocrine Medical History: Reports: None Renal/ Medical History: Reports: None Malignancy Medical History: Reports: None GI Medical History: Reports: None Musculoskeletal Medical History: Reports Hx Musculoskeletal Deformity, Reports Hx Musculoskeletal Trauma Skin Medical History: Reports None Psychiatric Medical History: Reports: Hx Anxiety, Hx Attention Deficit Hyperactivity Disorder, Hx Depression, Hx Post Traumatic Stress Disorder Traumatic Medical History: Reports: None Infectious Medical History: Reports: None Surgical Hx: Negative Past Surgical History: Reports: None - Immunizations Immunizations up to date: Yes Hx Diphtheria, Pertussis, Tetanus Vaccination: Yes Physical Exam - Vital signs Vitals: Temp 98.4 F 03/21/20 17:12 Course - Re-evaluation Re-evalutation: 03/21/20 21:58 Discussed x-ray with Dr. Norris. Commended posterior ankle splint and crutches and follow-up with him tomorrow. Shins were given to patient. Written report of x-ray given to patient and patient was discharged home. Patient states she did have Medicaid and would have to follow-up with her primary doctor first. Patient stated she would call her primary care and orthopedics in the morning. - Vital Signs Vital signs: Temp Pulse Resp BP Pulse Ox 97.9 F 111 H 20 113/92 H 98 03/21/20 18:54 03/21/20 17:16 03/21/20 17:16 03/21/20 17:16 03/21/20 17:16 - Diagnostic Test Radiology reviewed: Image reviewed, Reports reviewed Procedures - Immobilization Right Foot Time completed: 18:50 Pre-Proc Neuro Vasc Exam: Normal Immobilizer type: Posterior ankle Performed by: PCT Post-Proc Neuro Vasc Exam: Normal Alignment checked and good: Yes Discharge - Discharge Clinical Impression: Right foot cuboid avulsion fracture Condition: Stable Disposition: HOME, SELF-CARE Additional Instructions: Foot Fracture You have a fracture in one of the small bones of the foot. Some foot fractures are very serious, while others are no more serious than a sprain. This fracture should heal well, but requires protection for proper healing. Initially, you should elevate and ice pack the foot, and bear no weight on it. Usually, a cast or a walking boot will be required. Some milder foot fractures can be managed with temporary rest, then a firm shoe. Your physician has determined the seriousness of your foot fracture and has outlined the treatment plan for you. You should follow up as instructed to insure that the fracture heals without complications. Call the doctor or return at once if pain or swelling becomes severe, if a re-injury occurs, or if any part of the foot becomes numb. Splint Pending Casting Your injury can't be casted until the swelling has subsided. Therefore, a temporary splint has been placed to protect the injury. Full use of an injured area is not possible in a splint. You should follow the doctor's instructions concerning rest, ice, and elevation of the injury. Never do anything which causes pain under the splint. Keep the splint on ALL THE TIME until you return for casting. If there is unexpected severe pain, or numbness, discoloration, or swelling beyond the splint, you should return at once. USE OF CRUTCHES: The doctor has recommended that you not bear weight at this time. You will need to use crutches. Adjust the crutches so the tops come to about two inches under the armpit while you are standing upright. Use your hands -- not your armpits -- to support your weight. To get into a chair, support yourself with one crutch on the injured side. Hold the chair with the other hand, then lower yourself while putting all your weight on the good leg. Going up stairs is `good leg up, step up, then bring up crutches and bad leg.' Down stairs is `bad leg and crutches down, then bring good leg down.' If you develop numbness or swelling in an arm or hand, you are using the crutches incorrectly. Return if you are having any problems with the crutches. ICE & ELEVATION: Apply ice packs frequently against the painful area. Many different schedules are recommended, such as "20 minutes on, 20 minutes off" or "one hour ice, two hours rest." If you need to work, you may need to go longer between ice treatments. You should plan to have the area ice packed AT LEAST one-fourth of the time. The ice should be applied over the wrap, tape, or splint, or over a layer of cloth -- not directly against the skin. Some ice bags have a built-in cloth and can be put directly on the skin. Your injured part should be elevated as much as possible over the next 48 hours. Try to keep the injury above the level of the heart. Avoid use of the injured area. Elevation and rest will decrease the swelling. USE OF [id number] IBUPROFEN: Ibuprofen (Advil, Nuprin, Medipren, Motrin IB) is a medication for fever and pain control. In addition, it has anti- inflammatory effects which may be beneficial, especially in the treatment of injuries. It's best to take ibuprofen with food. Persons with ulcer disease or allergy to aspirin should notify their physician of this before taking ibuprofen. Ibuprofen can be given every four to six hours, for a total of four doses daily. Age Pain or fever dose Antiinflammatory dose 6-8 yr 200 mg (1 tab) 200 mg (1 tab) 9-11 yr 200 mg (1 tab) 200-400 mg (1-2 tab) 11-14 yr 200-400 mg (1-2 tab) 400 mg (2 tab) 15-adult 400 mg (2 tab) 600 mg (3 tab) FOLLOW-UP CARE: If you have been referred to a physician for follow-up care, call the physicians office for an appointment as you were instructed or within the next two days. If you experience worsening or a significant change in your symptoms, notify the physician immediately or return to the Emergency Department at any time for re-evaluation. Forms: Smoking Cessation Education, Return to Work, Elevated Blood Pressure Referrals: [facility] [Provider Group] - Follow up tomorrow GERALDINE DEVINE DO [NO LOCAL MD] - Follow up tomorrow
--- NOTE | 2020-03-21 18:06 | RADIOLOGY REPORT (SQ) ---
EXAM DESCRIPTION: ANKLE RIGHT COMPLETE IMAGES COMPLETED DATE/TIME: 03/21/2020 5:53 pm REASON FOR STUDY: Jumped twisted her pop COMPARISON: None. NUMBER OF VIEWS: Three views. TECHNIQUE: AP, lateral, and oblique radiographic images acquired of the right ankle. LIMITATIONS: None. FINDINGS: MINERALIZATION: Normal. BONES: No acute fracture or dislocation. No worrisome bone lesions. JOINTS: No effusions. SOFT TISSUES: No soft tissue swelling. No foreign body. OTHER: No other significant finding. IMPRESSION: No evidence of acute osseous injury. TECHNICAL DOCUMENTATION: JOB ID: [id number] 2010 [employer]- All Rights Reserved Reading location - IP/workstation name: [email or web address]
--- NOTE | 2020-03-21 18:09 | RADIOLOGY REPORT (SQ) ---
EXAM DESCRIPTION: FOOT RIGHT COMPLETE IMAGES COMPLETED DATE/TIME: 03/21/2020 5:53 pm REASON FOR STUDY: Jumped twisted her pop COMPARISON: None. NUMBER OF VIEWS: Three views. TECHNIQUE: AP, lateral and oblique radiographic images acquired of the right foot. LIMITATIONS: None. FINDINGS: MINERALIZATION: Normal. BONES: An ossific fragment seen adjacent to the cuboid on the oblique image is a nonspecific finding. No discrete donor site. Mineralization and alignment are normal without evidence of fracture or di slocation. JOINTS: No effusions. SOFT TISSUES: No soft tissue swelling. No foreign body. OTHER: No other significant finding. IMPRESSION: No discrete radiographic evidence of acute osseous injury. An irregular hyperdensity pr ojecting adjacent to the cuboid on the oblique image may represent a tiny avulsion injury. Recommend correlation with mechanism of injury and point tenderness. TECHNICAL DOCUMENTATION: JOB ID: [id number] 2010 [employer]- All Rights Reserved Reading location - IP/workstation name: [email or web address]
== END 2020-03-21 18:54 | disposition home or self-care (01) ==
LOC: ER 17:12
DX: S92.211A Displaced fracture of cuboid bone of right foot, initial encounter for closed fracture (principal); X50.0XXA Overexertion from strenuous movement or load, initial encounter; Y93.67 Activity, basketball
CPT/HCPCS: 99283; 73610; 73630; 29515; J3490

== ENCOUNTER 2020-04-23 15:26 | Emergency (ER) | payer MEDICAID ==
[2020-04-23 15:42] VITALS: BP 133/62
--- NOTE | 2020-04-23 15:53 | ER Document Report ---
ED Medical Screen (RME) - General Chief Complaint: Wound Recheck Stated Complaint: WOUND RECHECK Time Seen by Provider: 04/23/20 15:46 Primary Care Provider: RACHELLE DAVID MD [Primary Care Provider] - Follow up as needed Notes: HPI: 24-year-old female presenting for removal of cast from the right ankle. Patient states it was placed in [place] a month ago. She injured her ankle playing basketball. States she was told she could weight-bear with the cast on but it got soaked last night so she would like it removed. States she was only supposed to wear it for another week. States she did not fracture her ankle. States they tried to call the orthopedic office today but were unable to get through. PHYSICAL EXAMINATION: There is a short leg cast on the right lower extremity. Sensation intact in the toes with capillary refill less than 3 seconds. Casting material is damp. I have greeted and performed a rapid initial assessment of this patient. A comprehensive ED assessment and evaluation of the patient, analysis of test results and completion of medical decision making process will be conducted by an additional ED providers. TRAVEL OUTSIDE OF THE [place] IN LAST 30 DAYS: No - Related Data Allergies/Adverse Reactions: methylphenidate [From Concerta] Allergy (Verified 04/23/20 15:46) lavendar Allergy (Uncoded 04/23/20 15:46) Past Medical History Pulmonary Medical History: Denies: Hx Asthma Renal/ Medical History: Denies: Hx Peritoneal Dialysis Musculoskeltal Medical History: Reports Hx Musculoskeletal Deformity, Reports Hx Musculoskeletal Trauma Psychiatric Medical History: Reports: Hx Anxiety, Hx Attention Deficit Hyperactivity Disorder, Hx Depression, Hx Post Traumatic Stress Disorder - Immunizations Immunizations up to date: Yes Hx Diphtheria, Pertussis, Tetanus Vaccination: Yes Physical Exam - Vital signs Vitals: Temp Pulse Resp BP Pulse Ox 98.6 F 70 16 133/62 H 100 04/23/20 15:40 04/23/20 15:40 04/23/20 15:40 04/23/20 15:40 04/23/20 15:40 Course - Vital Signs Vital signs: Temp Pulse Resp BP Pulse Ox 98.6 F 70 16 133/62 H 100 04/23/20 15:40 04/23/20 15:40 04/23/20 15:40 04/23/20 15:40 04/23/20 15:40 Doctor's Discharge - Discharge Referrals: RACHELLE DAVID MD [Primary Care Provider] - Follow up as needed
--- NOTE | 2020-04-23 16:37 | RADIOLOGY REPORT (SQ) ---
EXAM DESCRIPTION: ANKLE RIGHT AP/LATERAL IMAGES COMPLETED DATE/TIME: 04/23/2020 4:06 pm REASON FOR STUDY: cast removal COMPARISON: 03/21/2020 NUMBER OF VIEWS: Two views. TECHNIQUE: AP and lateral radiographic images acquired of the right ankle. LIMITATIONS: External cast. FINDINGS: MINERALIZATION: Normal. BONES: No acute fracture or dislocation. No worrisome bone lesions. JOINTS: No effusions. SOFT TISSUES: No soft tissue swelling. No foreign body. OTHER: No other significant finding. IMPRESSION: NEGATIVE STUDY OF THE RIGHT ANKLE. NO RADIOGRAPHIC EVIDENCE OF ACUTE INJURY. TECHNICAL DOCUMENTATION: JOB ID: [id number] 2010 [employer]- All Rights Reserved Reading location - IP/workstation name: [email or web address]
--- NOTE | 2020-04-23 17:05 | ER Document Report ---
ED Extremity Problem, Lower - General Chief Complaint: Leg Injury Stated Complaint: WOUND RECHECK Time Seen by Provider: 04/23/20 15:46 Primary Care Provider: RACHELLE DAVID MD [Primary Care Provider] - Follow up as needed Notes: CHIEF COMPLAINT: Got cast wet HPI:24-year-old female presenting for removal of cast from the right ankle. Patient states it was placed in [place] a month ago. She injured her ankle p laying basketball. States she was told she could weight-bear with the cast on but it got soaked last night so she would like it removed. States she was only supposed to wear it for another week. States she did not fracture her ankle. States they tried to call the orthopedic office today but were unable to get through. ROS: See HPI - all other systems were reviewed and are otherwise negative Constitutional: no fever Integumentary: no rash Allergy: no hives Musculoskeletal: no extremity pain or swelling Neurological: no numbness/tingling, no weakness MEDICATIONS: I agree with the patient medications as charted by the RN. ALLERGIES: I agree with the allergies as charted by the RN. PAST MEDICAL HISTORY/PAST SURGICAL HISTORY: Reviewed and agree as charted by RN. SOCIAL HISTORY: Reviewed and agree as charted by RN. FAMILY HISTORY: No significant familial comorbid conditions directly related to patient complaint EXAM: Reviewed vital signs as charted by RN. CONSTITUTIONAL: Alert and oriented and responds appropriately to questions. Well-appearing; well-nourished HEAD: Normocephalic; atraumatic EYES: Conjunctivae clear, sclerae non-icteric ENT: normal nose; no rhinorrhea; moist mucous membranes NECK: Supple without meningismus CARD: symmetric distal pulses RESP: Normal chest excursion without splinting or tachypnea ABD/GI: non-distended BACK: The back appears normal EXT: Splint on right lower extremity, short leg cast. Capillary refill less than 3 seconds in the toes with intact sensation to touch SKIN: Normal color for age and race; warm; dry; good turgor; no acute lesions noted NEURO: Moves all extremities equally; Motor and sensory function intact PSYCH: The patient's mood and manner are appropriate. Grooming and personal hygiene are appropriate. MDM: 24-year-old female requesting her cast be removed because she got it wet last night. She states she did not break her ankle, x-ray confirms that there is no fracture. She states she was due to have it off in the next week, had injured her ankle a month ago and so was placed in the walking boot/cast by orthopedics in [place]. TRAVEL OUTSIDE OF THE [place] IN LAST 30 DAYS: No - Related Data Allergies/Adverse Reactions: methylphenidate [From Concerta] Allergy (Verified 04/23/20 15:46) lavendar Allergy (Uncoded 04/23/20 15:46) Past Medical History - Social History Smoking Status: Former Smoker Family History: Reviewed & Not Pertinent Pulmonary Medical History: Denies: Hx Asthma Renal/ Medical History: Denies: Hx Peritoneal Dialysis Musculoskeletal Medical History: Reports Hx Musculoskeletal Deformity, Reports Hx Musculoskeletal Trauma Psychiatric Medical History: Reports: Hx Anxiety, Hx Attention Deficit Hyperactivity Disorder, Hx Depression, Hx Post Traumatic Stress Disorder - Immunizations Immunizations up to date: Yes Hx Diphtheria, Pertussis, Tetanus Vaccination: Yes Physical Exam - Vital signs Vitals: Temp Pulse Resp BP Pulse Ox 98.6 F 70 16 133/62 H 100 04/23/20 15:40 04/23/20 15:40 04/23/20 15:40 04/23/20 15:40 04/23/20 15:40 Course - Vital Signs Vital signs: Temp Pulse Resp BP Pulse Ox 98.6 F 70 16 133/62 H 100 04/23/20 15:40 04/23/20 15:40 04/23/20 15:40 04/23/20 15:40 04/23/20 15:40 Procedures - Additional Procedures Dressing change Time performed: 17:10 - cast removal right lower leg Notes: 04/23/20 17:11 Cast on the right lower extremity was removed per the patient request. Patient with intact dorsalis pedis and posterior tibial pulse in the right lower extremity, sensation intact in the distal toes with capillary refill less than 3 seconds after cast removal Discharge - Discharge Clinical Impression: Orthopedic cast removal Condition: Stable Disposition: HOME, SELF-CARE Additional Instructions: Follow-up with your orthopedist in [place] for further evaluation. Use your crutches to help with weightbearing, as you have had the splint and cast on for a month you will have atrophy of the muscles and you will be more prone to injuring the ankle if you do not use your crutches Referrals: RACHELLE DAVID MD [Primary Care Provider] - Follow up as needed
== END 2020-04-23 17:33 | disposition home or self-care (01) ==
LOC: ER 15:26
DX: S99.911D Unspecified injury of right ankle, subsequent encounter (principal); X58.XXXD Exposure to other specified factors, subsequent encounter; Z88.8 Allergy status to other drugs, medicaments and biological substances; Z91.048 Other nonmedicinal substance allergy status
CPT/HCPCS: 99283